=== PATIENT | female | born 1990 | race Caucasian/White ===

== ENCOUNTER → 2016-09-28 | Outpatient (CLI) | payer OTHER | LOC: FIMAGING 13:18 | PROVIDERS: ATTEND Physician Assistant | DX: R91.1 Solitary pulmonary nodule (principal); R93.5 Abnormal findings on diagnostic imaging of other abdominal regions, including retroperitoneum; N28.1 Cyst of kidney, acquired ==

== ENCOUNTER → 2017-04-05 | Outpatient (CLI) | payer OTHER ==
[~2017-04-05] MED LIST: GADOBUTROL 10 ML VIAL IVP ONE
== END ==
LOC: FIMAGING 10:51
PROVIDERS: ATTEND Psychiatry & Neurology Neurology
DX: R20.2 Paresthesia of skin (principal); J32.9 Chronic sinusitis, unspecified; J34.1 Cyst and mucocele of nose and nasal sinus
CPT/HCPCS: A9585

== ENCOUNTER 2017-05-28 17:49 | Emergency (ER) | payer OTHER ==
[2017-05-28] MEDS ORDERED: NS 1,000 ML IV ONE (18:21)
--- NOTE | 2017-05-28 18:21 | EDPHY ---
H & P Stated Complaint: Flu- like symptoms for 6 days, N/V and bloody stool. Time Seen by Provider: 05/28/17 18:20 HPI/ROS: CHIEF COMPLAINT: Nausea, vomiting, diarrhea now bloody HISTORY OF PRESENT ILLNESS: The patient presents the ED with a 6 day history of nausea, vomiting and diarrhea. The patient presents to the ED tonight after she developed a abdominal cramping and bloody diarrhea. The patient denies any recent travel outside the [place]. She denies any recent antibiotic use. She denies any past medical history or significant surgical history. The patient denies any dysuria. She has no complaints of cough or congestion. The patient currently complains only of mild lower abdominal pain. REVIEW OF SYSTEMS: A comprehensive 10 point review of systems is otherwise negative aside from elements mentioned in the history of present illness. Source: Patient Exam Limitations: No limitations - Personal History LMP (Females 10-55): Now Current Tetanus Diphtheria and Acellular Pertussis (TDAP): Yes Tetanus Vaccine Date: < 10 years - Medical/Surgical History Hx Asthma: No Hx Chronic Respiratory Disease: No Hx Diabetes: No Hx Cardiac Disease: No Hx Renal Disease: No Hx Cirrhosis: No Hx Alcoholism: No Hx HIV/AIDS: No Hx Splenectomy or Spleen Trauma: No Other PMH: medical anxiety, ADD, migraines. surgery none - Social History Smoking Status: Never smoked - Physical Exam Exam: General Appearance: Alert, no distress Eyes: Pupils equal and round no pallor or injection ENT, Mouth: Mucous membranes moist Respiratory: There are no retractions, lungs are clear to auscultation Cardiovascular: Regular rate and rhythm Gastrointestinal: All bilateral lower abdominal tenderness, no rebound, no peritoneal signs Neurological: 5/5 strength all 4 extremities Skin: Warm and dry, no rashes Musculoskeletal: Neck is supple nontender Extremities: symmetrical, full range of motion Constitutional: Initial Vital Signs Temperature (C) 37 C 05/28/17 17:50 Heart Rate 107 H 05/28/17 17:50 Respiratory Rate 18 05/28/17 17:50 Blood Pressure 124/72 H 05/28/17 17:50 O2 Sat (%) 99 05/28/17 17:50 O2 Delivery Mode Room Air Allergies/Adverse Reactions: No Known Allergies Allergy (Verified 09/01/15 16:12) Home Medications: Medication Instructions Recorded Amphet Asp and D/Amphet [Adderall] 10 mg PO 09/04/13 Norethindrone A-E Estradiol 09/04/13 [Microgestin] Sulfacetamide-Sulfur 10-5% Crm 09/04/13 Valacyclovir 09/04/13 IMITREX 09/01/15 Ondansetron Odt [Zofran Odt 4 mg 4 mg PO Q4 PRN #6 tab 09/01/15 (*)] Ciprofloxacin [Cipro] 500 mg PO BID #6 tab 05/28/17 Ondansetron Odt [Zofran Odt] 4 mg PO Q4PRN PRN #20 tab 05/28/17 Medical Decision Making ED Course/Re-evaluation: The patient was unable to to give a diarrhea sample in the ED. She did have an IV established. She received a L of normal saline. She received 4 mg of IV Zofran. The patient will be discharged home with a prescription for Cipro for 3 days and Zofran. The patient is advised to return to the ED for markedly worsening symptoms or other concerns. I re-evaluated the patient at 8:00 p.m. and find no evidence of an acute abdomen. Differential Diagnosis: Differential diagnosis considered includes viral gastroenteritis, dehydration, metabolic abnormality - Data Points Laboratory Results: Laboratory Results 05/28/17 18:17 05/28/17 18:17 05/28/17 05/28/17 05/28/17 18:17 18:17 15:17 WBC 12.14 10^3/uL H 10^3/uL (3.80-9.50) RBC 4.44 10^6/uL 10^6/uL (4.18-5.33) Hgb 14.3 g/dL g/dL (12.6-16.3) Hct 41.3 % % (38.0-47.0) MCV 93.0 fL fL (81.5-99.8) MCH 32.2 pg pg (27.9-34.1) MCHC 34.6 g/dL g/dL (32.4-36.7) RDW 12.7 % % (11.5-15.2) Plt Count 338 10^3/uL 10^3/uL (150-400) MPV 10.1 fL fL (8.7-11.7) Neut % (Auto) 71.3 % % (39.3-74.2) Lymph % (Auto) 20.1 % % (15.0-45.0) [place] % (Auto) 5.3 % % (4.5-13.0) Eos % (Auto) 2.5 % % (0.6-7.6) Baso % (Auto) 0.4 % % (0.3-1.7) Nucleat RBC Rel Count 0.0 % % (0.0-0.2) Absolute Neuts (auto) 8.66 10^3/uL H 10^3/uL (1.70-6.50) Absolute Lymphs (auto) 2.44 10^3/uL 10^3/uL (1.00-3.00) Absolute Monos (auto) 0.64 10^3/uL 10^3/uL (0.30-0.80) Absolute Eos (auto) 0.30 10^3/uL 10^3/uL (0.03-0.40) Absolute Basos (auto) 0.05 10^3/uL 10^3/uL (0.02-0.10) Absolute Nucleated RBC 0.00 10^3/uL 10^3/uL (0-0.01) Immature Gran % 0.4 % % (0.0-1.1) Immature Gran # 0.05 10^3/uL 10^3/uL (0.00-0.10) Sodium 139 mEq/L mEq/L (135-145) Potassium 4.0 mEq/L mEq/L (3.5-5.2) Chloride 104 mEq/L mEq/L (97-110) Carbon Dioxide 25 mEq/l mEq/l (22-31) Anion Gap 10 mEq/L mEq/L (8-16) BUN 12 mg/dL mg/dL (7-23) Creatinine 0.9 mg/dL mg/dL (0.6-1.0) Estimated GFR > 60 Glucose 106 mg/dL H mg/dL (70-100) Calcium 10.0 mg/dL mg/dL (8.5-10.4) Beta HCG, Quant < 2.39 mIU/mL mIU/mL (0.00-4.83) Medications Given: Discontinued Medications Sodium Chloride (Ns) 1,000 mls @ 0 mls/hr IV ONCE ONE PRN Reason: Wide Open Stop: 05/28/17 18:22 Last Admin: 05/28/17 18:22 Dose: 1,000 mls Ondansetron HCl (Zofran) 4 mg IVP EDNOW ONE Stop: 05/28/17 18:52 Last Admin: 05/28/17 18:52 Dose: 4 mg Departure - Departure Disposition: Home, Routine, Self-Care Clinical Impression: Diarrhea Condition: Good Instructions: Acute Nausea and Vomiting (ED), Acute Diarrhea (ED) Additional Instructions: 1. Take antibiotics as directed for next 3 days. 2. Return to the ED for severe pain, heavy bleeding or other concerns. Referrals: Gregoria Hendrickson PA [Primary Care Provider] - As per Instructions
[2017-05-28 18:35] LABS: PLATELET COUNT 338 10^3/uL (150-400)
[2017-05-28] MEDS ORDERED: ONDANSETRON 4 MG/2 ML VIAL ONE (18:49)
[2017-05-28] MEDS ORDERED: ONDANSETRON 4 MG/2 ML VIAL IVP ONE (18:51)
[2017-05-28 20:37] VITALS: BP 108/70
== END 2017-05-28 20:47 | disposition home or self-care (01) ==
DX: R19.7 Diarrhea, unspecified (principal)
CPT/HCPCS: 96374; J2405